=== PATIENT | female | born 1985 | race Caucasian/White ===

== ENCOUNTER 2017-09-22 09:27 | Day surgery (SDC) | payer OTHER ==
[2017-09-22] VITALS (13 sets, daily range): BP systolic 93–123; BP diastolic 53–80; PULSE 56–77; RESP 12–19; Ht 154.9 cm; Wt 55.1 kg
[~2017-09-22] VITALS: Ht 154.9 cm; Wt 55.1 kg
[~2017-09-22 09:27] MED LIST: CEPH-443 PO; OXYC-281 PO
[2017-09-22] MEDS ORDERED: MIDAZOLAM 1 MG/ML 2 ML INJ ONE (12:47)
[2017-09-22] MEDS ORDERED: FENTAnyl 50 MCG/ML VIAL ONE (12:47)
[2017-09-22] MEDS ORDERED: OXYTOCIN 10 UNIT INJ ONE (12:58)
[2017-09-22] MEDS ORDERED: METHYLERGONOVINE 0.2 MG INJ ONE (13:26)
[2017-09-22] MEDS ORDERED: CEFAZOLIN 1 GM INJ ONE (13:32)
[2017-09-22] MEDS ORDERED: PROPOFOL 20 ML ONE (13:32)
[2017-09-22] MEDS ORDERED: ONDANSETRON 4 MG INJ ONE (13:32)
[2017-09-22] MEDS ORDERED: LIDOCAINE 2% (SDV) 5 ML INJ ONE (13:32)
--- NOTE | 2017-09-22 13:49 | OPR ---
Date/Time of Note Date/Time of Note DATE: 09/22/17 TIME: 13:34 Operative Report Free Text/Dictation 32 years old last menstrual period May 08, 2017 admitted to the hospital with diagnosis of missed at approximately 11 weeks of gestation undergoing dilatation and suction curettage Procedure Date: Sep 22, 2017 Preoperative Diagnosis Missed Postoperative Diagnosis Missed Operation/Procedure Performed Dilatation and suction curettage Surgeon see signature line Kelp Gatherer None Anesthesia Type: general Estimated Blood Loss: 50 - 100 ml's Transfusion none Specimen Products of conception sent to pathology Grafts/Implants none Complications none Pt Condition Post Procedure: stable Procedure Description Under satisfactory general anesthesia patient prepped and draped and placed in dorsal lithotomy position bimanual pelvic examination normal maritus introitus normal vagina cervix nulliparous uterus 10 to 12 weeks size adnexa not palpable. Weighted speculum introduced into the vagina anterior cervical lip grasped by Jake griffith uterine cavity sounded measured 13 cm cervical dilatation performed by using Hanks dilators and some larger caliber Hegar dilator to admit Vacurette #10, suction curettage performed using Vacurette #10 , product of conception removed then uterine cavity curetted using medium-sized sharp curette starting at 12:00 counterclockwise, scant amount of endometrial tissue submitted with the rest of the product of conception to pathology, patient received 30 units of Pitocin at the end of the procedure and 0.2 mg of Methergine intramuscular. Uterus massaged it seemed to be well contracted , tenaculum removed. Estimated blood loss approximately 100 cc patient tolerated procedure well transferred to recovery room in good condition SAMREEN MENDEZ MD Sep 22, 2017 13:48
--- NOTE | 2017-09-22 13:50 | PDOCDIS ---
Discharge Instructions CONDITION Patient Condition: Good ACTIVITY: Activity Restrictions: No Sexual Activity Bathing Restrictions: Shower FOLLOW UP/APPOINTMENTS Follow-up Plan Post D&C instructions given recommended to make appointment to be seen at the office in 1 weeks SAMREEN MENDEZ MD Sep 22, 2017 13:50
--- NOTE | 2017-09-22 13:55 | DS ---
Date/Time of Note Date/Time of Note DATE: 09/22/17 TIME: 13:51 Discharge Summary Admission/Discharge Info Admit Date/Time 32 years old G one P0 approximately 12 weeks diagnosed with missed AB underwent dilatation and suction curettage products of conception sent to pathology Discharge Date/Time September 22 at 1500 Discharge Diagnosis Post dilatation and suction curettage for missed Procedures Dilatation and suction curettage Hx of Present Illness First trimester diagnosed with missed Hospital Course Satisfactory uneventful Home Meds Discontinued Scripts Cephalexin* (Keflex*) 500 Mg Capsule, 500 MG PO QID, #28 CAP Prov:LUAN OROURKE NP 06/06/16 Oxycodone Hcl-Acetaminophen* (Percocet*) 5-325 Mg Tablet, 1 TAB PO Q4H Y for PAIN, #40 TAB Prov:LUAN OROURKE NP 06/06/16 Follow-up Plan Post D&C instructions given recommended to make appointment to be seen at the office in 1 weeks Primary Care Provider Care Physician No Primary Time spent on discharge: < 30 minutes SAMREEN MENDEZ MD Sep 22, 2017 13:55
[2017-09-22] MEDS ORDERED: MEPERIDINE 25 MG INJ IV PRN (14:00)
[2017-09-22] MEDS ORDERED: KETOROLAC 30 MG INJ IV PRN (14:00)
[2017-09-22] MEDS ORDERED: HYDROmorphONE (0.2 MG/ML) 10ML SYG IV PRN ×2 (14:00)
[2017-09-22] MEDS ORDERED: DIPHENHYDRAMINE 50 MG INJ IV PRN (14:00)
[2017-09-22] MEDS ORDERED: IBUPROFEN 600 MG TAB PO PRN (14:00)
[2017-09-22] MEDS ORDERED: FENTAnyl 50 MCG/ML VIAL IV PRN (14:00)
[2017-09-22] MEDS ORDERED: ONDANSETRON 4 MG INJ IV PRN (14:00)
== END 2017-09-22 16:00 | disposition home or self-care (01) ==
LOC: SDS 09:27
PROVIDERS: ATTEND Obstetrics & Gynecology
DX: Z30.2 Encounter for sterilization (principal)
CPT/HCPCS: 59820; 86850; 86900; 86901; 88305; J0690; J1885; J2175; J2210; J2250; J2405; J2590; J3010; Z7512; Z7610

== ENCOUNTER 2019-01-09 16:09 | Emergency (ER) | payer OTHER ==
[~2019-01-09] VITALS: Ht 167.6 cm; Wt 57.5 kg
[2019-01-09 16:12] VITALS: Ht 167.6 cm; Wt 57.5 kg
--- NOTE | 2019-01-09 17:28 | ERD ---
ER Documentation Chief Complaint Chief Complaint States blurred vision and 15 weeks sent from MD for eval. ROS All systems reviewed and are negative except as per history of present illness. Medications Home Meds No Active Prescriptions or Reported Meds Allergies Allergies: Coded Allergies: Sulfa (Sulfonamide Antibiotics) (Verified Allergy, Unknown, RASH HIVES, 09/22/17) PMhx/Soc History of Surgery: Yes (APPENDECTOMY, MAXIMILIANO EYE LASER SX) Anesthesia Reaction: No Hx Neurological Disorder: No Hx Respiratory Disorders: No Hx Cardiac Disorders: No Hx Psychiatric Problems: No Hx Miscellaneous Medical Probl: No Hx Alcohol Use: Yes (SOCIALLY) Hx Substance Use: Yes (OCCATIONAL MARIJUANA) Hx Tobacco Use: No Physical Exam Vitals Vital Signs Date Temp Pulse Resp B/P (MAP) Pulse Ox O2 O2 Flow FiO2 Time Delivery Rate 01/09/19 98.6 83 20 116/60 98 16:12 (78) Physical Exam Const: No acute distress Head: Atraumatic Eyes: Normal Conjunctiva ENT: Normal External Ears, Nose and Mouth. Neck: Full range of motion. No meningismus. Resp: Clear to auscultation bilaterally Cardio: Regular rate and rhythm, no murmurs Abd: Soft, non tender, non distended. Normal bowel sounds Skin: No petechiae or rashes Back: No midline or flank tenderness Ext: No cyanosis, or edema Neur: Awake and alert Psych: Normal Mood and Affect Departure Diagnosis: Primary Impression: Abnormal vision Condition: Fair Patient Instructions: Retinal Detachment, Retinal Tear Referrals: [facility] (PCP) RAS AMADO MD [facility] Additional Instructions: Call your primary care doctor TOMORROW for an appointment during the next 1-2 days.See the doctor sooner or return here if your condition worsens before your appointment time. follow up with ophthalmology 1-2 days SARAHY SERRATO DO Jan 09, 2019 17:28
== END 2019-01-09 17:31 | disposition home or self-care (01) ==
LOC: FTE 16:09
DX: O99.89 Other specified diseases and conditions complicating pregnancy, childbirth and the puerperium (principal); H53.8 Other visual disturbances; Z3A.15 15 weeks gestation of pregnancy
CPT/HCPCS: 99282

== ENCOUNTER 2019-03-16 09:21 | Inpatient (IN) | payer OTHER ==
[~2019-03-16] VITALS: Ht 154.9 cm; Wt 60.2 kg
[2019-03-16 09:31] VITALS: BP 104/66; PULSE 84; RESP 16; Ht 154.9 cm; Wt 60.2 kg
[2019-03-16] MEDS ORDERED: LACTATED RINGER'S 1,000 ML IV SCH (10:58)
[2019-03-16] MEDS ORDERED: ONDANSETRON 4 MG INJ IV STA (15:05)
[2019-03-16] MEDS ORDERED: ONDANSETRON 4 MG INJ ONE (15:06)
[2019-03-16] MEDS: ACETAMINOPHEN 500 MG TAB PO PRN ×2 (15:09→21:15)
--- NOTE | 2019-03-16 15:31 | TRIAGE ---
OB Triage Datetime Report Generated by CPN: 03/16/2019 15:31 Datetime: 03/16/2019 12:25 Labor Evaluation Pattern: Normal: <= 5 Contractions in 10 Minutes Resting Tone [place]: Relaxed Contraction Comments: no uc Heart Rate FHR Baseline Rate: 145 Variability: Moderate 6-25 bpm Accelerations: 15X15 Decelerations: None Category: Category I Datetime: 03/16/2019 10:52 Labor Evaluation Pattern: Normal: <= 5 Contractions in 10 Minutes Resting Tone [place]: Relaxed Contraction Comments: no uc Heart Rate FHR Baseline Rate: 145 Variability: Minimal - Undetectable to <=5 bpm Category: Category II Pain Assessment Pain Scale: 7 Pain Location: Back Pain Goal: 3 Datetime: 03/16/2019 09:30 Assessment Type: Triage Maternal Assessment Level of Consciousness: Fully Conscious DTR's/Clonus: DTRs 2+; No Clonus Headache: Denies Blurred Vision: No Respiratory Effort: Unlabored; Regular Rhythm; Equal Expansion Breath Sounds, Left: Clear and Equal Breath Sounds, Right: Clear and Equal Nausea/Vomiting: Denies RUQ Epigastric Pain: Denies Lower Extremities Edema: None Degree: None Upper Extremities Edema: None Degree: None Facial Edema: None Fall Risk Assessment History of Falling: (0) No Secondary Diagnosis: (0) No Ambulatory Aid: (0) Bedrest/Nurse Assist IV Therapy: (0) No Gait: (0) Normal/Bedrest/Immobile Mental Status: (0) Oriented to Own Ability Fall Score: 0 Fall Risk Score Definition: No Risk: No action required Datetime: 03/16/2019 09:29 Time of Arrival: 03/16/2019 09:11 EGA: 24.3 Arrived By: Ambulatory Arrived From: Home Chief Complaint: c/o vFburning sensation, right flank pain Movement: Present Contractions: Denies/Absent Rupture of Membranes: Denies Vaginal Bleeding: None Vaginal Discharge: Denies Recent Sexual Intercouse: Denies Abdominal Trauma: Not Applicable Patient Complaints: Other Time Provider Notified: 03/16/2019 09:34 Provider Notified: Initial Plan: r/o ptl
[2019-03-16] MEDS: SOD CHLORIDE 0.9% 1,000 ML IV SCH (16:13)
[2019-03-16] MEDS: CEFTRIAXONE 1 GM/50 ML (PMX) 50 ML IVPB SCH (16:14)
--- NOTE | 2019-03-16 19:46 | HP ---
Date/Time of Note Date/Time of Note DATE: 03/16/19 TIME: 19:42 OB - History Hx of Present Chief Complaint: right flank pain and dysuria Estimated Due Date: Jul 05, 2019 : 2 Para: 0 Spontaneous : 1 Therapeutic : 0 Care: Other (records not available) Obstetrical Complications: None Medical Complications: None Past Family/Social History * Past Medical, Surgical, Family and Obstetric Histories reviewed from chart. OB Admission Exam Vital Signs Vital Signs Vital Signs Date Temp Pulse Resp B/P (MAP) Pulse Ox O2 O2 Flow FiO2 Time Delivery Rate 03/16/19 98.4 84 16 104/66 09:31 (79) Physical Exam HEENT: WNL Heart: Rhythm Normal Lungs: Clear Abdomen: Abnormal (right CVAT) Extremities: Normal Reflexes: Normal Heart Rate: 140's Contractions on Admission: None Last 72 hours Lab Results CBC & BMP 03/16/19 09:46 03/16/19 09:47 Liver Function Test 03/16/19 09:46 Alanine Aminotransferase (ALT/SGPT) 16 Albumin 3.5 Alkaline Phosphatase 63 Aspartate Amino Transf (AST/SGOT) 25 Direct Bilirubin 0.00 Total Protein 7.0 OB Assessment/Plan Reason for admission: other Other Assessment: R/O pyelonephritis Plan: Other Other plan: Admit urine culture blood culture IV RAEGAN Welsh MD March 16, 2019 19:46
[2019-03-16] MEDS ORDERED: CALC1TAB93 PO (21:20)
[2019-03-16] MEDS ORDERED: PREN-99 PO (21:20)
[2019-03-16] MEDS ORDERED: FER325 PO (21:20)
[2019-03-16] MEDS: ONDANSETRON 4 MG INJ IV PRN (21:43)
[2019-03-17] MEDS: SOD CHLORIDE 0.9% 1,000 ML IV SCH ×3 (00:25→18:36)
[2019-03-17] MEDS: ONDANSETRON 4 MG INJ IV PRN (02:47)
[2019-03-17] MEDS: ACETAMINOPHEN 500 MG TAB PO PRN ×4 (02:47→21:01)
[2019-03-17] MEDS ORDERED: morphine 2 MG INJ IV STA ×2 (03:56→13:30)
[2019-03-17] MEDS ORDERED: morphine 2 MG INJ IV ONE (04:00)
[2019-03-17] MEDS: PRENATAL VITAMIN PO SCH (08:34)
[2019-03-17] MEDS: CEFTRIAXONE 1 GM/50 ML (PMX) 50 ML IVPB SCH (16:16)
--- NOTE | 2019-03-17 23:03 | QN ---
Documentation Comment 34-year-old 2 para 0 at 24 weeks and 4 days of gestation with estimated date of delivery July 05, 2019 admitted for pyelonephritis Patient is currently on IV antibiotics Vital signs stable VS - Last 72 Hours, by Label Date Temp Pulse Resp B/P (MAP) Pulse Ox O2 O2 Flow FiO2 Time Delivery Rate 03/16/19 98.4 84 16 104/66 09:31 (79) heart rate appropriate for gestational age [place] none Urine Results - 72 Hrs Test 03/16/19 09:30 Urine Color YELLOW (YELLOW) Urine Clarity TURBID (CLEAR) A Urine pH 7.0 (5.0-9.0) Urine Specific [place] 1.018 (1.003-1.030) Urine Ketones NEGATIVE mg/dL (NEGATIVE) Urine Nitrite NEGATIVE mg/dL (NEGATIVE) Urine Bilirubin NEGATIVE mg/dL (NEGATIVE) Urine Urobilinogen NEGATIVE mg/dL (NEGATIVE) Urine Leukocyte Esterase TRACE Jarret/ul (NEGATIVE) A Urine Microscopic RBC 6 /HPF (0-5) H Urine Microscopic WBC 37 /HPF (0-5) H Urine Bacteria FEW /HPF (NONE SEEN) A Urine Mucus FEW /HPF (NONE SEEN) A Urine Hemoglobin NEGATIVE mg/dL (NEGATIVE) Urine Glucose NEGATIVE mg/dL (NEGATIVE) Urine Total Protein NEGATIVE mg/dl (NEGATIVE) Microbiology URINE CULTURE Preliminary Organism 1 GRAM NEGATIVE ARINA COLONY COUNT 30,000 - 40,000 CFU/ml Hematology - 72 Hrs Test 03/16/19 09:47 Hematocrit 31.7 % (37.0-47.0) L Hemoglobin 11.0 g/dl (12.0-16.0) L Mean Corpuscular Hemoglobin 31.9 pg (29.0-33.0) Mean Corpuscular Hemoglobin Concent 34.7 g/dl (32.0-37.0) Mean Corpuscular Volume 91.9 fl (82.0-101.0) Mean Platelet Volume 10.4 fl (7.4-10.4) # Platelet Count 185 10^3/UL (140-415) Red Blood Count 3.45 10^6/ul (4.20-5.40) L Red Cell Distribution Width 13.1 % (11.5-14.5) White Blood Count 9.7 10^3/ul (4.8-10.8) Chemistry Test 03/16/19 09:46 Sodium Level 135 mmol/L (135-144) Potassium Level 4.0 mmol/L (3.5-5.1) Chloride Level 107 mmol/L (97-110) Carbon Dioxide Level 22 mmol/L (21-31) Anion Gap 6 (5-13) Blood Urea Nitrogen 12 mg/dl (7-20) Creatinine 0.49 mg/dl (0.44-1.00) Est Glomerular Filtrat Rate mL/min > 60 mL/min (>60) Glucose Level 101 mg/dl (70-220) Calcium Level 8.8 mg/dl (8.4-10.2) Total Bilirubin 0.6 mg/dl (0.2-1.3) Direct Bilirubin 0.00 mg/dl (0.00-0.20) Indirect Bilirubin 0.6 mg/dl (0-1.1) Aspartate Amino Transf (AST/SGOT) 25 IU/L (15-46) Alanine Aminotransferase (ALT/SGPT) 16 IU/L (13-69) Alkaline Phosphatase 63 IU/L (42-121) Total Protein 7.0 g/dl (6.1-8.1) Albumin 3.5 g/dl (3.3-4.9) Globulin 3.50 g/dl (1.3-3.2) H Albumin/Globulin Ratio 1.00 Amylase Level 88 U/L (11-123) Lipase 40 U/L (23-300) PROCEDURE: US OB AND ULTRASOUND CERVIX. CLINICAL INDICATION: Size and dates , labor TECHNIQUE: Multiple sonographic images of the pelvis and gravid uterus were obtained. The images were reviewed on a PACS workstation. Transvaginal images of the cervix were also obtained. COMPARISON: No prior studies are available for comparison. FINDINGS: Cervix: Length: 4.1 cm. Closed and competent. Gestation: Single live intrauterine gestation. Cardiac activity: 141 beats per minute. Presentation: Breech/variable Placenta: Location: Posterior Appearance: No previa or abruption. Amniotic Fluid: BRITANY = 16.8 cm Measurements: BPD = 5.9 cm, 24 weeks and 1 day HC = 22.1 cm, 24 weeks and 1 day AC = 20.9 cm, 25 weeks and 3 days FL = 4.3 cm, 24 weeks and 1 day Gestational Age: AUA estimated gestational age: 24 weeks 3 days LMP estimated gestational age: 24 weeks 3 days AUA estimated date of delivery: 07/03/19 The EFW = 733 g, 56.8%ile based on LMP age. RPTAT: AA IMPRESSION: Single live intrauterine gestation of approximately 24 weeks and 3 days based on ultrasound measurements. Cervix measures 4.1 cm in length. .Geoff Stern MD, MD Date Time Electronically viewed and signed by .Geoff Stern MD, MD on 03/16/2019 10:32 .S/ CC: RAEGAN PIRES MD [id number] PROCEDURE: US OB biophysical profile. CLINICAL INDICATION: decreased movements, labor TECHNIQUE: Multiple sonographic images of the pelvis were obtained. The images were reviewed on a PACS workstation. COMPARISON: No prior studies are available for comparison. FINDINGS: There is a single live intrauterine gestation. Cardiac activity is present with 156 beats per minute. There is a transverse right presentation. The placenta is anterior. There is no evidence of placental abruption. BRITANY = 16.8 cm. Biophysical profile: movement 2/2 tone 2/2. breathing 2/2 BRITANY 2/2 Total 06/01 RPTAT: AA . IMPRESSION: Normal biophysical profile. . .Geoff Stern MD, MD Date Time Electronically viewed and signed by .Geoff Stern MD, MD on 03/16/2019 10:24 .S/ CC: RAEGAN PIRES MD [id number] PROCEDURE: Retroperitoneal US. CLINICAL INDICATION: Pain, labor TECHNIQUE: Multiple sonographic images of the kidneys and retroperitoneum were obtained. The images were reviewed on a PACS workstation. COMPARISON: No prior studies are available for comparison. FINDINGS: The kidneys are normal in size, contour, cortical thickness and cortical echogenicity. The right kidney measures 11.1 cm. The left kidney measures 11.0 cm. No kidney stones are visualized. There is mild to moderate right-sided hydronephrosis. The urinary bladder is decompressed and not seen. RPTAT: AA IMPRESSION: Mild to moderate right-sided hydronephrosis. No evidence of left-sided hydronephrosis. .Geoff Stern MD, MD Date Time Electronically viewed and signed by .Geoff Stern MD, MD on 03/16/2019 10:10 .S/ CC: RAEGAN PIRES MD [id number] Assessment and plan Continue with present management ANKUSH ROMERO MD March 17, 2019 23:03
[2019-03-18] MEDS ORDERED: morphine 2 MG INJ IV ONE (01:14)
[2019-03-18] MEDS: SOD CHLORIDE 0.9% 1,000 ML IV SCH ×4 (02:13→22:53)
[2019-03-18] MEDS: ACETAMINOPHEN 500 MG TAB PO PRN ×4 (03:08→23:01)
[2019-03-18] MEDS: PRENATAL VITAMIN PO SCH (09:08)
[2019-03-18] MEDS: CEFTRIAXONE 1 GM/50 ML (PMX) 50 ML IVPB SCH (16:05)
[2019-03-18] MEDS ORDERED: AL HYDROX/MG HYDROX/SIMETH 30 ML CUP PO PRN (16:30)
--- NOTE | 2019-03-18 17:04 | QN ---
Documentation Comment Patient states her right flank pain is improving. Afebrile VSS + Right CVAT Urine culture E. coli Continue IV RAEGAN Welsh MD March 18, 2019 17:04
[2019-03-19] MEDS: SOD CHLORIDE 0.9% 1,000 ML IV SCH ×2 (03:00→11:09)
[2019-03-19] MEDS: ACETAMINOPHEN 500 MG TAB PO PRN (05:13)
[2019-03-19] MEDS: PRENATAL VITAMIN PO SCH (09:26)
--- NOTE | 2019-03-19 13:40 | DS ---
Date/Time of Note Date/Time of Note DATE: 03/19/19 TIME: 13:36 Obstetrical Discharge Record Final Diagnosis Final Diagnosis: not delivered Other Final Diagnosis Pyelonephritis Condition on Discharge Physical Assessment Voiding: Yes Bowel Movement: Yes Calf Tenderness: No Patient Condition: Stable RAEGAN PIRES MD March 19, 2019 13:40
[2019-03-19] MEDS: CEFTRIAXONE 1 GM/50 ML (PMX) 50 ML IVPB SCH (15:25)
== END 2019-03-19 16:15 | disposition home or self-care (01) | DRG 833 ==
LOC: OBT 09:21 → L-D 09:24 → OBT 14:43 → L-D 14:44
PROVIDERS: ADMIT Obstetrics & Gynecology; ATTEND Obstetrics & Gynecology
DX: O23.02 Infections of kidney in pregnancy, second trimester (principal); B96.20 Unspecified Escherichia coli [E. coli] as the cause of diseases classified elsewhere; Z3A.24 24 weeks gestation of pregnancy
CPT/HCPCS: 76775; 76815; 76817; 76818; 80053; 81001; 82150; 83690; 85025; 87086; G0463; J0696; J2270; J2405; J7030; J7120

== ENCOUNTER 2019-05-31 18:51 | Outpatient (CLI) | payer OTHER ==
[~2019-05-31 18:51] MED LIST changes: +CALC1TAB93 PO; -CEPH-443 PO; +CEPH500C PO; +FER325 PO; -OXYC-281 PO; +PREN-99 PO
--- NOTE | 2019-05-31 21:58 | TRIAGE ---
OB Triage Datetime Report Generated by CPN: 05/31/2019 21:57 Datetime: 05/31/2019 20:04 Comments: u/s at bedside Datetime: 05/31/2019 19:53 Assessment Type: Triage Maternal Assessment Level of Consciousness: Keenly Alert, Responsive DTR's/Clonus: DTRs 2+; No Clonus Headache: Denies Blurred Vision: No Respiratory Effort: Unlabored; Regular Rhythm; Equal Expansion Breath Sounds, Left: Clear and Equal Breath Sounds, Right: Clear and Equal Nausea/Vomiting: Denies RUQ Epigastric Pain: Denies Lower Extremities Edema: None Degree: None Upper Extremities Edema: None Degree: None Facial Edema: None Fall Risk Assessment History of Falling: (0) No Secondary Diagnosis: (0) No Ambulatory Aid: (0) Bedrest/Nurse Assist IV Therapy: (0) No Gait: (0) Normal/Bedrest/Immobile Mental Status: (0) Oriented to Own Ability Fall Score: 0 Fall Risk Score Definition: No Risk: No action required Datetime: 05/31/2019 19:49 Time of Arrival: 05/31/2019 18:36 EGA: 35.2 Arrived By: Ambulatory Arrived From: Home Chief Complaint: dfm Movement: Decreased Contractions: Denies/Absent Rupture of Membranes: Denies Vaginal Bleeding: None Vaginal Discharge: Denies Recent Sexual Intercouse: Denies Abdominal Trauma: Not Applicable Patient Complaints: None Time Provider Notified: 05/31/2019 19:51 Provider Notified: DELSHAD Initial Plan: nst, call md for further orders Datetime: 05/31/2019 18:59 EGA: 24.3 Datetime: 03/19/2019 16:05 Labor Evaluation Frequency: Irregular Monitor Mode: External Duration (sec)2399: 30-40 Quality: Mild Pattern: Normal: <= 5 Contractions in 10 Minutes Resting Tone Leedey: Relaxed Contraction Comments: uterine irritability noted Heart Rate FHR Baseline Rate: 150 Monitor Mode: External US FHR Baseline Changes: No Baseline Change Variability: Moderate 6-25 bpm Accelerations: 10X10 Decelerations: None Comments: NST DONE Comments: Appropriate for Gestational Age Pain Presence: None/Denies Datetime: 03/19/2019 15:34 Temperature Route: Oral Comments: NST STARTED Pain Presence: None/Denies Datetime: 03/19/2019 14:30 Pain Presence: None/Denies Datetime: 03/19/2019 13:30 Pain Presence: None/Denies Datetime: 03/19/2019 12:24 Temperature Route: Oral Pain Assessment Pain Scale: 0 Pain Presence: None/Denies Datetime: 03/19/2019 11:30 Pain Presence: None/Denies Datetime: 03/19/2019 10:30 Pain Presence: None/Denies Datetime: 03/19/2019 09:30 Pain Assessment Pain Scale: 0 Pain Presence: None/Denies Pain Goal: 0 Datetime: 03/19/2019 08:30 Pain Assessment Pain Scale: 0 Pain Presence: None/Denies Pain Goal: 0 Datetime: 03/19/2019 07:35 Assessment Type: Ongoing Assessment Maternal Assessment Level of Consciousness: Fully Conscious DTR's/Clonus: DTRs 2+; No Clonus Headache: Denies Blurred Vision: No Respiratory Effort: Unlabored; Regular Rhythm; Equal Expansion Breath Sounds, Left: Clear and Equal Breath Sounds, Right: Clear and Equal Nausea/Vomiting: Denies RUQ Epigastric Pain: Denies Lower Extremities Edema: None Degree: None Upper Extremities Edema: None Degree: None Facial Edema: None Fall Risk Assessment History of Falling: (0) No Secondary Diagnosis: (0) No Ambulatory Aid: (0) Bedrest/Nurse Assist IV Therapy: (20) Yes Gait: (0) Normal/Bedrest/Immobile Mental Status: (0) Oriented to Own Ability Fall Score: 20 Fall Risk Score Definition: No Risk: No action required Pain Presence: None/Denies Datetime: 03/19/2019 05:13 Pain Assessment Pain Scale: 4 Pain Presence: Intermittent Pain Type: Ache Pain Location: Back Pain Goal: 2 Pain Relief Measures: Pain Medication Given; Comfort Measures Pain Assessment Comments: warm compress placed on back. Datetime: 03/19/2019 02:47 Stage of : Antepartum Temperature Route: Oral Pain Assessment Pain Scale: 4 Pain Presence: Intermittent Pain Type: Ache Pain Location: Back Pain Goal: 2 Pain Relief Measures: Comfort Measures Pain Assessment Comments: warm compress placed on the back Datetime: 03/19/2019 01:17 Stage of : Antepartum Datetime: 03/18/2019 23:01 Pain Assessment Pain Scale: 3 Pain Presence: Intermittent Pain Type: Ache Pain Location: Back Pain Goal: 2 Pain Relief Measures: Pain Medication Given; Comfort Measures Datetime: 03/18/2019 22:21 Stage of : Antepartum Temperature Route: Oral Datetime: 03/18/2019 21:16 Stage of : Antepartum Labor Evaluation Frequency: x1 Monitor Mode: External Quality: Mild Pattern: Normal: <= 5 Contractions in 10 Minutes Resting Tone Leedey: Relaxed Heart Rate FHR Baseline Rate: 150 Monitor Mode: External US Variability: Moderate 6-25 bpm Accelerations: 15X15 Decelerations: None Category: Category I Datetime: 03/18/2019 20:30 Stage of : Antepartum Datetime: 03/18/2019 20:29 Monitor Mode: External Monitor Mode: External US Datetime: 03/18/2019 19:19 Stage of : Antepartum Datetime: 03/18/2019 18:00 Pain Assessment Pain Scale: 3 Pain Presence: Intermittent Pain Type: Ache Pain Location: Back Pain Goal: 0 Pain Relief Measures: Comfort Measures Datetime: 03/18/2019 17:00 Pain Assessment Pain Scale: 6 Pain Presence: Intermittent Pain Type: Ache Pain Location: Back Pain Goal: 0 Pain Relief Measures: Pain Medication Given Datetime: 03/18/2019 16:08 Temperature Route: Oral Datetime: 03/18/2019 12:11 Temperature Route: Oral Pain Assessment Pain Scale: 1 Pain Presence: Intermittent Pain Type: Ache Pain Location: Back Pain Goal: 0 Pain Relief Measures: Comfort Measures Datetime: 03/18/2019 10:51 Monitor Mode: External Resting Tone Leedey: Relaxed Heart Rate FHR Baseline Rate: 140 Monitor Mode: External US FHR Baseline Changes: No Baseline Change Variability: Moderate 6-25 bpm Accelerations: 15X15 Decelerations: None Category: Category I Comments: Appropriate for GA Comments: NST DONE Pain Assessment Pain Scale: 1 Pain Presence: Intermittent Pain Type: Ache Pain Location: Back Pain Goal: 0 Pain Relief Measures: Comfort Measures Datetime: 03/18/2019 10:00 Pain Assessment Pain Scale: 1 Pain Presence: Intermittent Pain Type: Ache Pain Location: Back Pain Relief Measures: Comfort Measures Datetime: 03/18/2019 09:52 Comments: NST STARTED Datetime: 03/18/2019 09:00 Pain Assessment Pain Scale: 4 Pain Presence: Intermittent Pain Type: Ache Pain Location: Back Pain Relief Measures: Comfort Measures Datetime: 03/18/2019 08:31 Temperature Route: Oral Pain Assessment Pain Scale: 4 Pain Presence: Intermittent Pain Type: Ache Pain Location: Back Pain Relief Measures: Pain Medication Given; Comfort Measures Datetime: 03/18/2019 07:30 Assessment Type: Ongoing Assessment Maternal Assessment Level of Consciousness: Fully Conscious DTR's/Clonus: DTRs 2+; No Clonus Headache: Denies Blurred Vision: No Respiratory Effort: Unlabored; Regular Rhythm; Equal Expansion Breath Sounds, Left: Clear and Equal Breath Sounds, Right: Clear and Equal Nausea/Vomiting: Denies RUQ Epigastric Pain: Denies Lower Extremities Edema: None Degree: None Upper Extremities Edema: None Degree: None Facial Edema: None Fall Risk Assessment History of Falling: (0) No Secondary Diagnosis: (0) No Ambulatory Aid: (0) Bedrest/Nurse Assist IV Therapy: (20) Yes Gait: (0) Normal/Bedrest/Immobile Mental Status: (0) Oriented to Own Ability Fall Score: 20 Fall Risk Score Definition: No Risk: No action required Datetime: 03/18/2019 03:08 Pain Assessment Pain Scale: 4 Pain Presence: Intermittent Pain Type: Ache Pain Location: Left Flank Datetime: 03/18/2019 02:24 Pain Assessment Pain Scale: 5 Pain Presence: Intermittent Pain Type: Ache Pain Location: Right Flank Pain Assessment Comments: PT REPORTS THAT SHE IS ABLE TO RELAX WITH MORPHINE. Datetime: 03/18/2019 00:56 Pain Assessment Pain Scale: 6 Pain Presence: Intermittent Pain Type: Ache Pain Location: Right Flank Datetime: 03/17/2019 20:54 Labor Evaluation Frequency: IRRIT Monitor Mode: External Quality: Mild Pattern: Normal: <= 5 Contractions in 10 Minutes Resting Tone Leedey: Relaxed FHR Baseline Changes: No Baseline Change Variability: Moderate 6-25 bpm Accelerations: 15X15 Decelerations: None Comments: NST COMPLETED. FHR APPROPRIATE FOR GESTATIONAL AGE. Datetime: 03/17/2019 20:25 Assessment Type: Ongoing Assessment Maternal Assessment Level of Consciousness: Fully Conscious Headache: Denies Blurred Vision: No Respiratory Effort: Unlabored; Regular Rhythm; Equal Expansion Nausea/Vomiting: Denies RUQ Epigastric Pain: Denies Lower Extremities Edema: None Degree: None Upper Extremities Edema: None Degree: None Facial Edema: None Fall Risk Assessment History of Falling: (0) No Secondary Diagnosis: (0) No Ambulatory Aid: (0) Bedrest/Nurse Assist IV Therapy: (20) Yes Gait: (0) Normal/Bedrest/Immobile Mental Status: (0) Oriented to Own Ability Fall Score: 20 Fall Risk Score Definition: No Risk: No action required Pain Presence: None/Denies Datetime: 03/17/2019 20:22 Comments: EFM APPLIED FOR NST. Datetime: 03/17/2019 18:50 Stage of : Antepartum Pain Assessment Comments: pt ambulating at bs to see if it helps back pain; declines medication at this time Datetime: 03/17/2019 16:26 Stage of : Antepartum Datetime: 03/17/2019 16:23 Stage of : Antepartum Temperature Route: Oral Pain Assessment Pain Scale: 4 Pain Presence: Constant Pain Type: Pressure Pain Location: Right Flank Pain Relief Measures: Comfort Measures Datetime: 03/17/2019 13:55 Labor Evaluation Frequency: 0 Duration (sec)2399: 0 Contraction Comments: abd palpates soft. Heart Rate FHR Baseline Rate: 155 Monitor Mode: External US Variability: Moderate 6-25 bpm Accelerations: 10X10 Decelerations: Variable Comments: fht's appropriate for gestational age. Datetime: 03/17/2019 11:05 Stage of : Antepartum Pain Assessment Pain Scale: 2 Pain Presence: Constant Pain Type: Pressure Pain Location: Right Flank Pain Goal: 0 Pain Relief Measures: Comfort Measures Datetime: 03/17/2019 07:45 Assessment Type: Ongoing Assessment Maternal Assessment Level of Consciousness: Fully Conscious DTR's/Clonus: DTRs 2+; No Clonus Headache: Denies Blurred Vision: No Respiratory Effort: Unlabored; Regular Rhythm; Equal Expansion Breath Sounds, Left: Clear and Equal Breath Sounds, Right: Clear and Equal Nausea/Vomiting: Denies RUQ Epigastric Pain: Denies Lower Extremities Edema: None Degree: None Upper Extremities Edema: None Degree: None Facial Edema: None Temperature Route: Oral Fall Risk Assessment History of Falling: (0) No Secondary Diagnosis: (0) No Ambulatory Aid: (0) Bedrest/Nurse Assist IV Therapy: (20) Yes Gait: (0) Normal/Bedrest/Immobile Mental Status: (0) Oriented to Own Ability Fall Score: 20 Fall Risk Score Definition: No Risk: No action required Pain Assessment Pain Scale: 3 Pain Presence: Constant Pain Type: Pressure Pain Location: Right Flank Pain Goal: 0 Pain Relief Measures: Comfort Measures Datetime: 03/17/2019 03:50 Temperature Route: Axillary Pain Assessment Pain Scale: 8 Pain Presence: Constant Pain Type: Dull Pain Location: Right Flank Datetime: 03/17/2019 00:42 Labor Evaluation Frequency: none Monitor Mode: External Resting Tone Leedey: Relaxed Heart Rate FHR Baseline Rate: 150 Monitor Mode: External US Variability: Moderate 6-25 bpm Accelerations: 10X10 Decelerations: None Category: Category I Comments: NST REACTIVE Datetime: 03/17/2019 00:15 Monitor Mode: External Monitor Mode: External US Comments: NST STARTED Datetime: 03/17/2019 00:14 Monitor Mode: External US Datetime: 03/17/2019 00:12 Monitor Mode: External US Pain Assessment Pain Scale: 4 Pain Presence: Constant Pain Type: Dull Pain Location: Right Flank Pain Relief Measures: Comfort Measures Datetime: 03/16/2019 19:54 Time of Arrival: 03/16/2019 15:02 EGA: 24.3 Arrived By: Ambulatory Arrived From: Home Datetime: 03/16/2019 19:47 Stage of : Antepartum Assessment Type: Ongoing Assessment Maternal Assessment Level of Consciousness: Fully Conscious DTR's/Clonus: DTRs 2+; No Clonus Headache: Denies Blurred Vision: No Respiratory Effort: Unlabored; Regular Rhythm; Equal Expansion Breath Sounds, Left: Clear and Equal Breath Sounds, Right: Clear and Equal Nausea/Vomiting: Denies RUQ Epigastric Pain: Denies Lower Extremities Edema: None Degree: None Upper Extremities Edema: None Degree: None Facial Edema: None Temperature Route: Oral Fall Risk Assessment History of Falling: (0) No Secondary Diagnosis: (0) No Ambulatory Aid: (0) Bedrest/Nurse Assist IV Therapy: (20) Yes Gait: (0) Normal/Bedrest/Immobile Mental Status: (0) Oriented to Own Ability Fall Score: 20 Fall Risk Score Definition: No Risk: No action required Pain Assessment Pain Scale: 3 Pain Presence: Constant Pain Type: Dull Pain Location: Right Flank Pain Relief Measures: Comfort Measures Datetime: 03/16/2019 19:10 Stage of : Antepartum Vaginal Exam Membrane Status: Intact Datetime: 03/16/2019 18:09 Pain Assessment Pain Scale: 3 Pain Presence: Constant Pain Type: Dull Pain Location: Back Pain Relief Measures: Comfort Measures Datetime: 03/16/2019 16:00 Stage of : OB Triage Labor Evaluation Frequency: none noted Monitor Mode: External Resting Tone Leedey: Relaxed Heart Rate FHR Baseline Rate: 145 Monitor Mode: External US Variability: Minimal - Undetectable to <=5 bpm Accelerations: 15X15 Decelerations: None Category: Category II Pain Assessment Pain Scale: 8 Pain Presence: Constant Pain Type: Ache Pain Location: Abdomen; Back Pain Relief Measures: Comfort Measures Datetime: 03/16/2019 15:08 Comments: loss of contact; picking up maternal hr Datetime: 03/16/2019 15:05 Assessment Type: Admission Assessment Vaginal Bleeding: None Maternal Assessment Level of Consciousness: Fully Conscious DTR's/Clonus: DTRs 2+ Headache: Denies Blurred Vision: No Respiratory Effort: Unlabored; Regular Rhythm; Equal Expansion Breath Sounds, Left: Clear and Equal Breath Sounds, Right: Clear and Equal Nausea/Vomiting: Hx of Nausea/Vomiting RUQ Epigastric Pain: Denies Lower Extremities Edema: None Degree: None Upper Extremities Edema: None Degree: None Facial Edema: None Fall Risk Assessment History of Falling: (0) No Secondary Diagnosis: (0) No Ambulatory Aid: (0) Bedrest/Nurse Assist IV Therapy: (20) Yes Gait: (0) Normal/Bedrest/Immobile Mental Status: (0) Oriented to Own Ability Fall Score: 20 Fall Risk Score Definition: No Risk: No action required Pain Assessment Pain Scale: 7 Pain Presence: Constant Pain Type: Sharp Pain Location: Abdomen; Back Vaginal Exam Membrane Status: Intact Datetime: 03/16/2019 15:00 Stage of : OB Triage Labor Evaluation Frequency: none noted Monitor Mode: External Resting Tone Leedey: Relaxed Monitor Mode: External US Comments: pt constantly moving and difficult staying on monitor due to pain she states. Pain Assessment Pain Scale: 8 Pain Presence: Constant Pain Type: Ache Pain Location: Abdomen; Back Pain Relief Measures: Comfort Measures Datetime: 03/16/2019 14:00 Stage of : OB Triage Labor Evaluation Frequency: none noted Monitor Mode: External Resting Tone Leedey: Relaxed Monitor Mode: External US Comments: loss of contact Pain Assessment Pain Scale: 8 Pain Presence: Constant Pain Type: Ache Pain Location: Abdomen; Back Pain Relief Measures: Comfort Measures Datetime: 03/16/2019 13:00 Stage of : OB Triage Labor Evaluation Frequency: none noted Monitor Mode: External Resting Tone Leedey: Relaxed Heart Rate FHR Baseline Rate: 140 Monitor Mode: External US Variability: Minimal - Undetectable to <=5 bpm Accelerations: 10X10 Decelerations: None Comments: loss of contact Pain Assessment Pain Scale: 8 Pain Presence: Constant Pain Type: Ache Pain Location: Abdomen; Back Pain Relief Measures: Comfort Measures Datetime: 03/16/2019 09:30 Fall Score: 0 Fall Risk Score Definition: No Risk: No action required Datetime: 03/16/2019 09:29 EGA: 24.3
--- NOTE | 2019-06-01 00:09 | PN ---
Triage Information Date/Time 06/01/2019 Reason for visit: Weeks of Gestation 35 weeks and 2 days /Para Additional information 34-year-old G2, P0 with IUP at 35 weeks and 2 days presents with complaint of decreased movements. She denies any vaginal bleeding or leaking of fluid or contractions. Patient denies any comp occasions during course except had recurrent UTI and currently on prophylactic Keflex once a day. Objective Heart Rate: 130's Heart Rate Comments Category 1 No contraction on the monitor noted Contractions: None Exam GA: Alert and oriented x4 does not appear to be in any acute distress Abdomen: Soft, gravid, fundal height consider date NST: Category 1 and reactive BP: 06/01 EFW: 2790 g UA negative Results/Medications Results 24 hrs Laboratory Tests Test 05/31/19 18:45 Urine Color STRAW Urine Clarity CLEAR Urine pH 6.0 Urine Specific [place] 1.010 Urine Ketones NEGATIVE Urine Nitrite NEGATIVE Urine Bilirubin NEGATIVE Urine Urobilinogen NEGATIVE Urine Leukocyte Esterase NEGATIVE Urine Hemoglobin NEGATIVE Urine Glucose NEGATIVE Urine Total Protein NEGATIVE Imaging Results PROCEDURE: US OB biophysical profile. CLINICAL INDICATION: decreased movements, TECHNIQUE: Multiple sonographic images of the pelvis were obtained. The images were reviewed on a PACS workstation. COMPARISON: No prior studies are available for comparison. FINDINGS: There is a single live intrauterine gestation. Cardiac activity is present with 150 beats per minute. There is a vertex presentation. The placenta is left lateral. There is no evidence of placental abruption. BRITANY = 18.3 cm. Biophysical profile: movement 2/2 tone 2/2. breathing 2/2 BRITANY 2/2 Total 06/01 RPTAT: AA . IMPRESSION: Normal biophysical profile. PROCEDURE: US OB. CLINICAL INDICATION: Size and dates , labor TECHNIQUE: Multiple sonographic images of the pelvis and gravid uterus were obtained. The images were reviewed on a PACS workstation. COMPARISON: US 03/16/2019 FINDINGS: Gestation: Single live intrauterine gestation. Cardiac activity: 146 beats per minute. Presentation: Vertex. Placenta: Location: Left lateral Appearance: No previa or abruption. Measurements: BPD = 8.7 cm, 34 weeks and 6 days HC = 30.7 cm, 34 weeks and 1 day AC = 32.3 cm, 36 weeks and 2 days FL = 7.1 cm, 36 weeks and 2 days Gestational Age: AUA estimated gestational age: 35 weeks 3 days LMP estimated gestational age: 35 weeks 2 days AUA estimated date of delivery: 07/02/19 The EFW = 2790 g, 65%ile based on LMP age. RPTAT: AA IMPRESSION: Single live intrauterine gestation of 35 weeks 3 days by ultrasound criteria. .Geoff Stern MD, MD Date Time Electronically viewed and signed by .Geoff Stern MD, MD on 05/31/2019 20:27 .S/ CC: RAEGAN PIRES MD [phone] Disposition: Discharge Assessment/Plan IUP at 35 weeks and 2 days Decreased movement, testing reassuring No evidence of labor PPROM History of recurrent UTI, on prophylactic Keflex. Asymptomatic DC home Follow-up in [address] Rader's office Strict labor precautions and kick counts discussed. She verbalized understanding importance of follow-up with primary OB office in 2 days MASTER JARA MD Jun 01, 2019 00:09
== END 2019-05-31 21:20 | disposition home or self-care (01) ==
LOC: OBT 18:51 → L-D 18:51 → OBT 21:20
PROVIDERS: ATTEND Obstetrics & Gynecology
DX: O36.8130 Decreased fetal movements, third trimester, not applicable or unspecified (principal); Z3A.35 35 weeks gestation of pregnancy
CPT/HCPCS: 76815; 76818; 81003; Z7500; G0463

== ENCOUNTER 2019-06-02 08:08 | Outpatient (CLI) | payer OTHER ==
[~2019-06-02] VITALS: Ht 154.9 cm; Wt 68.0 kg
[2019-06-02 08:32] VITALS: BP 113/68; PULSE 113; RESP 18; Ht 154.9 cm; Wt 68.0 kg
--- NOTE | 2019-06-02 14:14 | TRIAGE ---
OB Triage Datetime Report Generated by CPN: 06/02/2019 14:13 Datetime: 06/02/2019 10:56 Stage of : OB Triage Datetime: 06/02/2019 10:12 Frequency: 0 Monitor Mode: External Pattern: Normal: <= 5 Contractions in 10 Minutes Resting Tone [place]: Relaxed FHR Baseline Rate: 145 Monitor Mode: External US Variability: Moderate 6-25 bpm Accelerations: 10X10 Decelerations: None Category: Category I Pain Scale: 0 Pain Presence: None/Denies Pain Type: N/A Pain Goal: 3 Pain Relief Measures: Comfort Measures Datetime: 06/02/2019 09:15 Frequency: 0 Monitor Mode: External Pattern: Normal: <= 5 Contractions in 10 Minutes Resting Tone [place]: Relaxed FHR Baseline Rate: 135 Monitor Mode: External US Variability: Moderate 6-25 bpm Accelerations: 10X10 Decelerations: None Category: Category I Pain Scale: 0 Pain Presence: None/Denies Pain Type: N/A Pain Goal: 3 Pain Relief Measures: Comfort Measures Datetime: 06/02/2019 08:17 Stage of : OB Triage Assessment Type: Triage Level of Consciousness: Keenly Alert, Responsive DTR's/Clonus: DTRs 2+; No Clonus Headache: Denies Blurred Vision: No Respiratory Effort: Unlabored; Regular Rhythm; Equal Expansion Breath Sounds, Left: Clear and Equal Breath Sounds, Right: Clear and Equal Nausea/Vomiting: Denies RUQ Epigastric Pain: Denies Facial Edema: None Temperature Route: Axillary History of Falling: (0) No Secondary Diagnosis: (0) No Ambulatory Aid: (0) Bedrest/Nurse Assist IV Therapy: (0) No Gait: (0) Normal/Bedrest/Immobile Mental Status: (0) Oriented to Own Ability Fall Score: 0 Fall Risk Score Definition: No Risk: No action required Frequency: 3-5 Monitor Mode: External Duration (sec)2399: 30-40 Quality: Mild (Annotations: STATES FEEL VERY VERY SLIGHTLY, DIFFICULT TELLING THE DIFFERENCE BETWEE N THEM AND MOVEMENT) Pattern: Normal: <= 5 Contractions in 10 Minutes Resting Tone [place]: Relaxed FHR Baseline Rate: 145 Monitor Mode: External US Variability: Moderate 6-25 bpm Accelerations: None Pain Scale: 0 Pain Presence: None/Denies Pain Type: N/A Pain Goal: 3 Pain Relief Measures: Comfort Measures Datetime: 06/02/2019 08:15 Time of Arrival: 06/02/2019 07:55 EGA: 35.4 Arrived By: Ambulatory Arrived From: Home Chief Complaint: F/U DFM, NST/BPP, DENIES LEAKING, BLEEDING OR UC'S Movement: Present Contractions: Denies/Absent Rupture of Membranes: Denies Vaginal Bleeding: None Vaginal Discharge: Denies Recent Sexual Intercouse: Denies Abdominal Trauma: Not Applicable Patient Complaints: None Time Provider Notified: 06/02/2019 10:56 Provider Notified: TRUPTI Initial Plan: NST/BPP Datetime: 05/31/2019 20:54 Frequency: 2-5 Monitor Mode: External Duration (sec)2399: 50-80 Quality: Mild Pattern: Normal: <= 5 Contractions in 10 Minutes Resting Tone [place]: Relaxed FHR Baseline Rate: 140 Monitor Mode: External US Variability: Moderate 6-25 bpm Accelerations: 15X15 Decelerations: None Category: Category I Dilatation (cms): 0.0 Effacement (%): 0 Station: -3 Exam By: WILLIAM Membrane Status: Intact Vaginal Bleeding: None Cervix, Consistency: Firm Cervix, Position: Posterior Presentation 'A': Cephalic Datetime: 05/31/2019 20:00 Frequency: 2-9 Monitor Mode: External Duration (sec)2399: 40-120 Quality: Mild Pattern: Normal: <= 5 Contractions in 10 Minutes Resting Tone [place]: Relaxed FHR Baseline Rate: 140 Monitor Mode: External US Variability: Moderate 6-25 bpm Accelerations: 15X15 Decelerations: None Category: Category I Pain Scale: 0 Pain Presence: None/Denies Pain Type: N/A Datetime: 05/31/2019 19:53 Fall Score: 0 Fall Risk Score Definition: No Risk: No action required Datetime: 05/31/2019 19:49 EGA: 35.2
--- NOTE | 2019-06-02 20:21 | PN ---
Triage Information Date/Time 06/02/1907/13/2016 Reason for visit: DFM (and antepartum test) Weeks of Gestation 35w4d /Para A1 Diabetes: none Hypertention: none Additional information on keflex 500mg daily Objective Vital Signs Date Temp Pulse Resp B/P (MAP) Pulse Ox O2 O2 Flow FiO2 Time Delivery Rate 06/02/19 99.0 113 18 113/68 08:32 (83) Heart Rate: 140's Heart Rate Comments CAT I Contractions: >10 Minutes Apart Exam VE closed Results/Medications Results 24 hrs Laboratory Tests Test 06/02/19 09:20 Urine Color YELLOW Urine Clarity CLEAR Urine pH 7.0 Urine Specific [place] 1.006 Urine Ketones NEGATIVE Urine Nitrite NEGATIVE Urine Bilirubin NEGATIVE Urine Urobilinogen NEGATIVE Urine Leukocyte Esterase NEGATIVE Urine Hemoglobin NEGATIVE Urine Glucose 2+ H Urine Total Protein NEGATIVE Imaging Results BPP 06/01 BRITANY 18.3 EFW 2790gm Disposition: Discharge Assessment/Plan IUP 35w4d DFM P discharge home RTH biwkly for antepatum test RABIA LYLES MD Jun 02, 2019 20:21
== END 2019-06-02 11:05 | disposition home or self-care (01) ==
LOC: OBT 08:08 → L-D 08:08 → OBT 11:05
PROVIDERS: ATTEND Obstetrics & Gynecology
DX: O36.8130 Decreased fetal movements, third trimester, not applicable or unspecified (principal); Z3A.35 35 weeks gestation of pregnancy
CPT/HCPCS: 76818; 81003; Z7500; G0463